=== PATIENT | male | born 1940 | race Caucasian/White ===

== ENCOUNTER 2017-09-26 13:34 | Emergency (ER) | payer OTHER, BC ==
[2017-09-26] MEDS ORDERED: LEVSIN/MAALOX/LIDOC VISC ONE (13:41)
[2017-09-26] MEDS ORDERED: LEVSIN/MAALOX/LIDOC VISC PO ONE (13:41)
[2017-09-26 13:45] VITALS: BMI 27.9
--- NOTE | 2017-09-26 13:49 | DR.GENAD ---
HPI - PCP Primary Care Physician: Charli - Complaint/Symptoms Chief Complaint Doctors Comments: Patient presented with complain of chest pain. He has a history of cardiac surgery 2013, heart cath 2015,pacemaker s/p cardioversion 2010. He states that he took one Nitroglycerin with partial reliev and upon presentation to the ED; pain is gone. He is followed by [facility] at [facility]. He states that he recently had an endoscopy done by Dr Yates, gastritis, esophagitis found and now on medication. Patient states that he is asymptomatic except for the esophagitis. PMH - PMH Past Medical History: Angina, Coronary Artery Disease, CVA, [place] Surgical History: CABG/Valve Surgery ROS - Review of Systems Constitutional: No Symptoms Reported. negative: Diaphoresis Eyes: No Symptoms Reported ENTM: No Symptoms Reported Respiratoy: No Symptoms Reported Cardiovascular: See HPI, Chest Pain Gastrointestinal/Abdominal: No Symptoms Reported Genitourinary: No Symptoms Reported Neurological: No Symptoms Reported Musculoskeletal: No Symptoms Reported Integumentary: No Symptoms Reported Hematologic/Lymphatic: No Symptoms Reported Endocrine: No Symptoms Reported Psychiatric: No Symptoms Reported All Other Systems: Reviewed and Negative PE - Vital Signs Vitals: Temperature 98.2 F Pulse Rate [Apical] 66 Pulse Rate 60 Respiratory Rate 20 Blood Pressure [Right Arm] 159/73 Blood Pressure 213/96 O2 Sat by Pulse Oximetry 98 - General Limitations: No Limitations General Appearance: Alert, In No Apparent Distress - Head Head Exam: Normal Inspection, Atraumatic - Eyes Eye exam: Normal Appearance, PERRL, EOMI - ENT ENT Exam: Normal Exam External Ear Exam: Normal External Inspection TM/Canal Exam: Bilateral Normal Nose Exam: Normal Nose Exam Mouth Exam: Normal Inspection Throat Exam: Normal Inspection, Other (esophagitis) - Neck Neck Exam: Normal Inspection - Chest Chest Inspection: Normal Inspection - Respiratory Respiratory Exam: Normal Lung Sounds Bilat Respiratory Exam: Bilateral Clear to Auscultation - Cardiovascular Cardiovascular Exam: Regular Rate, Normal Rhythm - Abdominal Exam Abdominal Exam: Normal Inspection, Normal Bowel Sounds Abdominal Tenderness: negative: RUQ, RLQ, LUQ, LLQ, Epigastrium, Suprapubic, Diffuse, Mild, Moderate, Severe, Other - Extremities Extremities Exam: Normal Inspection, Full ROM - Back Back Exam: Normal Inspection, Full ROM - Neurologic Neurological Exam: Alert, Oriented X3, CN II-XII Intact - Psychiatric Psychiatric Exam: Normal Affect, Normal Mood - Skin Skin Exam: Warm, Dry, Intact Course - Treatment Treatment: GI cocktail - Reevaluation 1st: Improved ROR - Labs Reviewed Result Diagrams: 09/26/17 13:55 09/26/17 13:55 Laboratory: WBC 6.1 X10^3/uL (3.6-10.0) 09/26/17 13:55 RBC 4.26 X10^6/uL (4.7-6.0) L 09/26/17 13:55 Hgb 13.5 g/dL (13.5-18.0) 09/26/17 13:55 Hct 38.8 % (42.0-54.0) L 09/26/17 13:55 MCV 90.9 fL (80.0-100.0) 09/26/17 13:55 MCH 31.7 pg (27.0-34.0) 09/26/17 13:55 MCHC 34.8 g/dL (33.0-35.0) 09/26/17 13:55 RDW 13.4 % (11.6-16.5) 09/26/17 13:55 Plt Count 141 X10^3/uL (150.0-450.0) L 09/26/17 13:55 MPV 8.3 fL (7.4-11.0) 09/26/17 13:55 Neut % 61.7 % (42.0-75.0) 09/26/17 13:55 Lymph % 30.4 % (21.0-51.0) 09/26/17 13:55 Grand % 5.6 % (0.0-13.0) 09/26/17 13:55 Eos % 1.4 % (0.9-2.9) 09/26/17 13:55 Baso % 0.9 % (0.2-1.0) 09/26/17 13:55 Neut # 3.8 x10^3/uL (2.2-4.8) 09/26/17 13:55 Lymph # 1.9 X10^3/uL (1.3-2.9) 09/26/17 13:55 Grand # 0.3 x10^3/uL (0.3-0.8) 09/26/17 13:55 Eos # 0.1 x10^3/uL (0.0-0.2) 09/26/17 13:55 Baso # 0.1 X10^3/uL (0.0-0.1) 09/26/17 13:55 Absolute Nucleated RBC 0.0 /100WBC 09/26/17 13:55 INR Target Range - 09/26/17 13:55 INR 2.53 (0.8-1.3) H 09/26/17 13:55 PTT 37.1 SECONDS (22.9-36.5) H 09/26/17 13:55 PTT Comment - 09/26/17 13:55 Sodium 143 mmol/L (136-145) 09/26/17 13:55 Corrected Sodium 144 mmol/L (136-145) 09/26/17 13:55 Potassium 3.9 mmol/L (3.5-5.1) 09/26/17 13:55 Chloride 107 mmol/L (98-107) 09/26/17 13:55 Carbon Dioxide 31.5 mmol/L (21-32) 09/26/17 13:55 BUN 16 mg/dL (7-18) 09/26/17 13:55 Creatinine 1.08 mg/dL (0.70-1.30) 09/26/17 13:55 Est GFR (MDRD) Af Amer > 60 (>60) 09/26/17 13:55 Est GFR (MDRD) Non-Af > 60 (>60) 09/26/17 13:55 Glucose 124 mg/dL (65-99) H 09/26/17 13:55 Calcium 8.9 mg/dL (8.5-10.1) 09/26/17 13:55 Corrected Calcium TNP 09/26/17 13:55 Magnesium 2.0 mg/dL (1.7-2.9) 09/26/17 13:55 Total Bilirubin 0.70 mg/dL (0.2-1.0) 09/26/17 13:55 AST 23 Units/L (15-37) 09/26/17 13:55 ALT 35 Units/L (12-78) 09/26/17 13:55 Alkaline Phosphatase 101 Units/L (46-116) 09/26/17 13:55 Creatine Kinase 87 Units/L (39-308) 09/26/17 13:55 CK-MB (CK-2) 1.2 ng/mL (0-4.0) 09/26/17 13:55 CK/CKMB % Calc 1.4 % (<4) 09/26/17 13:55 Troponin I < 0.02 ng/mL (0-1.5) 09/26/17 13:55 Total Protein 7.3 g/dL (6.4-8.2) 09/26/17 13:55 Albumin 3.8 g/dL (3.4-5.0) 09/26/17 13:55 Globulin 3.5 g/dL (2.5-4.5) 09/26/17 13:55 Albumin/Globulin Ratio 1.1 Ratio (1.1-2.1) 09/26/17 13:55 Amylase 69 Units/L (25-115) 09/26/17 13:55 Lipase 263 Units/L (73-393) 09/26/17 13:55 H. pylori IgG Antibody Negative (NEGATIVE) 09/26/17 13:55 - XRAY XRAY Interpreted by: Radiologist - EKG [place]: Normal Hypertrophy: LAE ST: Old, Ischemia (anteriorseptal) - Diagnosis Discharge Problem: Chest pain in adult, Esophagitis determined by endoscopy - Discharge Plan Condition: Stable - Follow ups/Referrals Follow ups/Referrals: KURTIS CASTANEDA [Primary Care Provider] - 3 days - Instructions
[2017-09-26] MEDS ORDERED: NS 1000 ML 1,000 ML ONE (13:57)
[2017-09-26] MEDS ORDERED: NS 1000 ML 1,000 ML IV SCH (14:00)
[2017-09-26 14:04] LABS: BASOPHILS # (AUTO) 0.1 X10^3/uL (0.0-0.1); BASOPHILS % (AUTO) 0.9 % (0.2-1.0); EOSINOPHILS # (AUTO) 0.1 x10^3/uL (0.0-0.2); EOSINOPHILS % (AUTO) 1.4 % (0.9-2.9); HEMATOCRIT 38.8 % (42.0-54.0); HEMOGLOBIN 13.5 g/dL (13.5-18.0); LYMPHOCYTES # (AUTO) 1.9 X10^3/uL (1.3-2.9); LYMPHOCYTES % (AUTO) 30.4 % (21.0-51.0); MEAN CORPUSCULAR HEMOGLOBIN 31.7 pg (27.0-34.0); MEAN CORPUSCULAR HGB CONC 34.8 g/dL (33.0-35.0); MEAN CORPUSCULAR VOLUME 90.9 fL (80.0-100.0); MEAN PLATELET VOLUME 8.3 fL (7.4-11.0); MONOCYTES # (AUTO) 0.3 x10^3/uL (0.3-0.8); MONOCYTES % (AUTO) 5.6 % (0.0-13.0); NEUTROPHILS # (AUTO) 3.8 x10^3/uL (2.2-4.8); NEUTROPHILS % (AUTO) 61.7 % (42.0-75.0); PLATELET COUNT 141 X10^3/uL (150.0-450.0); RED BLOOD COUNT 4.26 X10^6/uL (4.7-6.0); RED CELL DISTRIBUTION WIDTH 13.4 % (11.6-16.5); WHITE BLOOD COUNT 6.1 X10^3/uL (3.6-10.0)
[2017-09-26 14:10] VITALS: BP 159/73
[2017-09-26 14:11] LABS: AMYLASE 69 Units/L (25-115); LIPASE 263 Units/L (73-393)
[2017-09-26 14:37] LABS: BLOOD UREA NITROGEN 16 mg/dL (7-18); CALCIUM 8.9 mg/dL (8.5-10.1); CARBON DIOXIDE 31.5 mmol/L (21-32); CHLORIDE 107 mmol/L (98-107); COR NA(FOR HYPERGLY) 144 mmol/L (136-145); CREATININE 1.08 mg/dL (0.70-1.30); SODIUM 143 mmol/L (136-145); TROPONIN I < 0.02 ng/mL (0-1.5); eGFR BLACK RACES > 60 (>60); eGFR NON BLACK RACES > 60 (>60)
[2017-09-26 14:41] LABS: ALANINE AMINOTRANSFERASE 35 Units/L (12-78); ALBUMIN 3.8 g/dL (3.4-5.0); ALKALINE PHOSPHATASE 101 Units/L (46-116); ASPARTATE AMINO TRANSFERASE 23 Units/L (15-37); CKMB % 1.4 % (<4); CREATINE KINASE 87 Units/L (39-308); CREATINE KINASE MB 1.2 ng/mL (0-4.0); TOTAL PROTEIN 7.3 g/dL (6.4-8.2)
--- NOTE | 2017-09-26 15:57 | RAD ---
HISTORY: Feeling funny in the chest Study: Single view of the chest. Comparison: None. Findings: The cardiomediastinal silhouette is normal. Prior mediastinal surgery. Scarring of the right lung bas e. Osseous structures demonstrate no acute abnormality. IMPRESSION: 1. No acute cardiopulmonary process. 2. Scarring at the right lung base and evidence of prior cardiac surgery. Reported By:
== END 2017-09-26 15:05 | disposition home or self-care (01) ==
LOC: ER 14:00
DX: R07.89 Other chest pain (principal); K20.9 Esophagitis, unspecified
CPT/HCPCS: 36415; 71045; 80053; 82150; 82550; 82553; 83690; 83735; 84484; 85025; 85610; 85730; 86677; 93005; 93010; 96365; 99282; 99283; 99284; A4222